=== PATIENT | female | born 1975 | race Two or more races ===

== ENCOUNTER 2017-04-18 10:13 | Emergency (ER) | payer OTHER ==
[~2017-04-18] VITALS: Ht 175.3 cm; Wt 85.0 kg
[~2017-04-18 10:13] MED LIST: IBUP800T23 PO; PERC5TAB12 PO
[2017-04-18 10:40] VITALS: BP 164/94; PULSE 72; RESP 17; TEMP 98.7; O2SAT 99
--- NOTE | 2017-04-18 10:40 | PD ---
HPI Chief Complaint: overdose Time Seen by Provider: 10:37 Travel History International Travel<30 days: No Contact w/Intl Traveler<30days: No History of Present Illness HPI Social 41 year-old woman presents emergency Department under a Castillo act. Castillo act states that she took a handful of Xanax tablets while arguing with her . Patient states that she was fighting and "wanted to stop". She took a handful of Xanax tablets wall in view of her . She states that she then spit them out. She did not swallow any. Police were called. She has a history of panic disorder, is prescribed the Xanax. Does not take any other medications. Is seeing a psychiatrist for depression symptoms but does not take any medicine for depression. She's never been hospitalized before. No history of previous attempts at self-harm. She states she's been feeling down for a while. She does states she feels safe at home. She does have firearms in the house. History Past Medical History Narrative Medical Anxiety/panic disorder Social History Alcohol Use: No Tobacco Use: No Allergies-Medications (Allergen,Severity, Reaction): Coded Allergies: codeine (Unverified Allergy, Intermediate, 11/16/16) iodine (Unverified Allergy, Intermediate, Hives, 11/16/16) morphine (Unverified Allergy, Intermediate, Hives, 11/16/16) potassium iodide (Unverified Allergy, Intermediate, Hives, 11/16/16) povidone-iodine (Unverified Allergy, Intermediate, Hives, 11/16/16) sodium iodide (Unverified Allergy, Intermediate, Hives, 11/16/16) sodium iodide (Unverified Allergy, Intermediate, Hives, 11/16/16) Reported Meds & Prescriptions Reported Meds & Active Scripts Active Reported Ibuprofen 800 Mg Tab 800 Mg PO Q8 PRN Percocet 5/325 (Oxycodone/Acetaminophen) 5 Mg/325 Mg Tab 1 Tab PO Q6H PRN Review of Systems Except as stated in HPI: all other systems reviewed are Neg Physical Exam Narrative GENERAL: Well-appearing 41 year-old woman, no acute distress. SKIN: Focused skin assessment warm/dry. HEAD: Atraumatic. Normocephalic. EYES: Pupils equal and round. No scleral icterus. No injection or drainage. ENT: No nasal bleeding or discharge. Mucous membranes pink and moist. NECK: Trachea midline. No JVD. CARDIOVASCULAR: Regular rate and rhythm. No murmur appreciated. RESPIRATORY: No accessory muscle use. Clear to auscultation. Breath sounds equal bilaterally. GASTROINTESTINAL: Abdomen soft, non-tender, nondistended. Hepatic and splenic margins not palpable. MUSCULOSKELETAL: No obvious deformities. No edema. NEUROLOGICAL: Awake and alert. No obvious cranial nerve deficits. Motor grossly within normal limits. Normal speech. PSYCHIATRIC: Tearful and sad. Data Data Last Documented VS Vital Signs Date Time Temp Pulse Resp B/P (MAP) Pulse Ox O2 Delivery O2 Flow Rate FiO2 04/18/17 10:40 98.7 72 17 164/94 (117) 99 Orders Orders Electrocardiogram (04/18/17 10:37) Complete Blood Count With Diff (04/18/17 10:37) Comprehensive Metabolic Panel (04/18/17 10:37) Urinalysis - C+S If Indicated (04/18/17 10:37) Iv Access Insert/Monitor (04/18/17 10:37) Sodium Chloride 0.9% Flush (Ns Flush) (04/18/17 10:45) Drug Screen, Random Urine (04/18/17 10:37) Alcohol (Ethanol) (04/18/17 10:37) Salicylates (Aspirin) (04/18/17 10:37) Tylenol (Acetaminophen) (04/18/17 10:37) Ed Urine Pregnancytest Poc (04/18/17 10:37) Psych Screen (04/18/17 10:37) Labs Laboratory Tests Test 04/18/17 10:50 04/18/17 10:55 Urine Color YELLOW Urine Turbidity CLEAR Urine pH 7.0 Urine Specific [place] 1.015 Urine Protein TRACE mg/dL Urine Glucose (UA) NEG mg/dL Urine Ketones NEG mg/dL Urine Occult Blood NEG Urine Nitrite NEG Urine Bilirubin NEG Urine Urobilinogen LESS THAN 2.0 MG/DL Urine Leukocyte Esterase NEG Urine RBC 1 /hpf Urine WBC LESS THAN 1 /hpf Urine Squamous Epithelial Cells <1 /hpf Urine Bacteria RARE /hpf Urine Hyaline Casts 3 /lpf Urine Mucus FEW /lpf Microscopic Urinalysis Comment CULT NOT INDICATED Urine Opiates Screen NEG Urine Barbiturates Screen NEG Urine Amphetamines Screen NEG Urine Benzodiazepines Screen NEG Urine Cocaine Screen NEG Urine Cannabinoids Screen POS White Blood Count 6.1 TH/MM3 Red Blood Count 4.28 MIL/MM3 Hemoglobin 13.6 GM/DL Hematocrit 40.0 % Mean Corpuscular Volume 93.5 FL Mean Corpuscular Hemoglobin 31.7 PG Mean Corpuscular Hemoglobin Concent 33.9 % Red Cell Distribution Width 13.7 % Platelet Count 188 TH/MM3 Mean Platelet Volume 7.8 FL Neutrophils (%) (Auto) 70.0 % Lymphocytes (%) (Auto) 24.1 % Monocytes (%) (Auto) 5.2 % Eosinophils (%) (Auto) 0.3 % Basophils (%) (Auto) 0.4 % Neutrophils # (Auto) 4.3 TH/MM3 Lymphocytes # (Auto) 1.5 TH/MM3 Monocytes # (Auto) 0.3 TH/MM3 Eosinophils # (Auto) 0.0 TH/MM3 Basophils # (Auto) 0.0 TH/MM3 CBC Comment DIFF FINAL Differential Comment Blood Urea Nitrogen 8 MG/DL Creatinine 0.72 MG/DL Random Glucose 95 MG/DL Total Protein 8.0 GM/DL Albumin 4.2 GM/DL Calcium Level 9.1 MG/DL Alkaline Phosphatase 55 U/L Aspartate Amino Transf (AST/SGOT) 20 U/L Alanine Aminotransferase (ALT/SGPT) 22 U/L Total Bilirubin 1.0 MG/DL Sodium Level 138 MEQ/L Potassium Level 4.2 MEQ/L Chloride Level 106 MEQ/L Carbon Dioxide Level 25.8 MEQ/L Anion Gap 6 MEQ/L Estimat Glomerular Filtration Rate 89 ML/MIN Salicylates Level LESS THAN 1.7 MG/DL Acetaminophen Level LESS THAN 2.0 MCG/ML Ethyl Alcohol Level LESS THAN 3 MG/DL [facility] Medical Decision Making Medical Screen Exam Complete: Yes Emergency Medical Condition: Yes Interpretation(s) My review of EKG: Sinus bradycardia rate of 59, normal axis, normal intervals, no acute ischemia. LABS: CBC is unremarkable. CMP is unremarkable. UA is unremarkable. Injection positive for cannabinoids Acetaminophen negative, as was lites negative Alcohol negative Differential Diagnosis Overdose, benzodiazepine ingestion, other coingestions, depression symptoms, just a reaction, other Narrative Course Medical decision-making new 41 year-old woman presents emergency Department under Castillo act with some depression symptoms and suicidal gesture. Looks well. No recent illness or injury. We'll check labs EKG, psych screen. No evidence of benzodiazepines effect. Labs unremarkable. Patient is medically clear for psychiatric evaluation. Saeid Angela MD Apr 18, 2017 10:40
[2017-04-18] MEDS ORDERED: SODIUM CHLORIDE 0.9% FLUSH 10 ML FLUSH IVF PRN (10:45)
[2017-04-18 11:16] LABS: AUTOMATED NEUTROPHIL # 4.3 TH/MM3 (1.8-7.7); BASOPHIL % 0.4 % (0.0-2.0); EOSINOPHIL % 0.3 % (0.0-4.0); HEMOGLOBIN 13.6 GM/DL (11.6-15.3); LYMPH % 24.1 % (9.0-44.0); LYMPHOCYTE # 1.5 TH/MM3 (1.0-4.8); MEAN CELL VOLUME 93.5 FL (80.0-100.0); MEAN CORPUSCULAR HEMOGLOBIN 31.7 PG (27.0-34.0); MEAN CORPUSCULAR HGB CONC 33.9 % (32.0-36.0); MEAN PLATELET VOLUME 7.8 FL (7.0-11.0); MONO % 5.2 % (0.0-8.0); MONOCYTE # 0.3 TH/MM3 (0-0.9); PLATELET COUNT 188 TH/MM3 (150-450); RED BLOOD COUNT 4.28 MIL/MM3 (4.00-5.30); RED CELL DISTRIBUTION WIDTH 13.7 % (11.6-17.2); WHITE BLOOD COUNT 6.1 TH/MM3 (4.0-11.0)
[2017-04-18 11:25] LABS: BACTERIA, URINE RARE /hpf; BILIRUBIN, URINE NEG (NEG); BLOOD, URINE NEG (NEG); GLUCOSE,URINE NEG (NEG); HYALINE CAST, URINE 3 /lpf (RARE); KETONE, URINE NEG (NEG); MUCUS URINE FEW /lpf (OCC); NITRITE,URINE NEG (NEG); SQUAMOUS EPITHELIAL CELL URINE <1 /hpf (0-5); URINE COLOR YELLOW (YELLW/STRAW); URINE LEUKOCYTE ESTERASE NEG (NEG)
[2017-04-18 11:36] LABS: ALBUMIN 4.2 GM/DL (3.4-5.0); ALT (GPT) 22 U/L (10-53); AST (GOT) 20 U/L (15-37); BICARBONATE 25.8 MEQ/L (21.0-32.0); BLOOD UREA NITROGEN 8 MG/DL (7-18); CALCIUM 9.1 MG/DL (8.5-10.1); CHLORIDE 106 MEQ/L (98-107); CREATININE 0.72 MG/DL (0.50-1.00); GLOMERULAR FILTRATION RATE 89 ML/MIN (>89); GLUCOSE,RANDOM 95 MG/DL (74-106); SODIUM (NA) 138 MEQ/L (136-145)
[2017-04-18 11:38] LABS: ALKALINE PHOSPHATASE 55 U/L (45-117)
[2017-04-18 11:55] LABS: ACETAMINOPHEN LESS THAN 2.0 MCG/ML (10.0-30.0)
[2017-04-18 13:07] VITALS: BP 168/82; PULSE 70; RESP 16; TEMP 98.3; O2SAT 97
--- NOTE | 2017-04-18 16:40 | PD ---
History of Present Illness Chief Complaint: Psychiatric Symptoms Time Seen by Provider: 15:45 Travel History International Travel<30 Days: No Contact w/Intl Traveler<30days: No Known affected area: No Legal Status Legal Status: Castillo Act Castillo Act Signed By: Braulio Ball History of Present Illness: History of Present Illness 41 year-old female with history of depression and anxiety, never formally treated who presents to emergency Department under a Castillo act initiated by law enforcement . Castillo act states that she took a handful of Xanax tablets while arguing with her . Patient states that she was fighting and "wanted it to stop". She took a handful of Xanax tablets while in view of her . She states that she then spit them out.She also tells me that she knew that if she spit them out she would not harm herself . The couple had been arguing for several hours and she states that " he said something that triggered me". EMR reviewed. No previous contact with [facility] psychiatry dept. Current toxicology is positive for cannabinoids. Negative for benzodiazepine. Patient is seen. She is alert, oriented, calm and cooperative. Speech is clear and logical. She is tearful. There is no psychosis, no marietta. Mood is depressed. No suicdal or homicidal ideation, intent or plan. She is future oriented. Has an appointment tomorrow with her therapist as well as with her PCP. She is considering treatment with antidepressants. Telephone call to her . at [phone]. He has no concerns if she were discharged and is ready to come and pick her up. [facility] Past Medical History ?: Not LMP: d Psychiatric History Psychiatric History Hx Psychiatric Treatment: No psychiatric hospitalizations. No previous suicide attempts. Has been receiving outpatient therapy services including EMDR. Has been receiving Xanax by PCP. History of Inpatient Treatment: No Guns or firearms in home: Yes Social History Born and raised in [place]. In [place] x 10 years. Completed 12 grade. Works as a gymnastic instructor. x 21 years. has 5 children. Lives with , 18 year old son, 13 year old and 3 year old. One of her children 2 years ago in an accident. Hx Alcohol Use: No Hx Tobacco Use: No Hx Substance Use: Yes Substance Use Type: Marijuana Hx of Substance Use Treatment: No Family Psychiatric History Negative. Allergies-Medications (Allergen,Severity, Reaction): Coded Allergies: codeine (Unverified Allergy, Intermediate, 11/16/16) iodine (Unverified Allergy, Intermediate, Hives, 11/16/16) morphine (Unverified Allergy, Intermediate, Hives, 11/16/16) potassium iodide (Unverified Allergy, Intermediate, Hives, 11/16/16) povidone-iodine (Unverified Allergy, Intermediate, Hives, 11/16/16) sodium iodide (Unverified Allergy, Intermediate, Hives, 11/16/16) sodium iodide (Unverified Allergy, Intermediate, Hives, 11/16/16) Reported Meds & Prescriptions Reported Meds & Active Scripts Active Reported Ibuprofen 800 Mg Tab 800 Mg PO Q8 PRN Percocet 5/325 (Oxycodone/Acetaminophen) 5 Mg/325 Mg Tab 1 Tab PO Q6H PRN Review of Systems Except as stated in HPI: all other systems reviewed are Neg Mental Status Examination Appearance: Appropriate Consciousness: Alert Orientation: x4 Motor Activity: Normal gait Speech: Unremarkable Language: Adequate Fund of Knowledge: Adequate Attention and Concentration: Adequate Memory: Unremarkable Mood: Sad, Anxious Affect: Appropriate, Other (tearful) Thought Process & Associations: Intact, Logical, Goal directed Thought Content: Appropriate Hallucination Type: None Delusion Type: None Suicidal Ideation: No Suicidal Plan: No Suicidal Intention: No Homicidal Ideation: No Homicidal Plan: No Homicidal Intention: No Insight: Adequate Judgment: Adequate [facility] Medical Decision Making Medical Record Reviewed: Yes Assessment/Plan 41 year-old female with history of depression and anxiety, never formally treated who presents to emergency Department under a Castillo act initiated by law enforcement . Castillo act states that she took a handful of Xanax tablets while arguing with her . Patient states that she was fighting and "wanted it to stop". She took a handful of Xanax tablets while in view of her . She states that she then spit them out.She also tells me that she knew that if she spit them out she would not harm herself . The couple had been arguing for several hours and she states that " he said something that triggered me". Patient is monitored in secure environment and presented no behavioral concerns. She is not psychotic and not manic. She is denying any suicidal or homicidal ideation, intent or plan. She is future oriented and is planning on seeing her therapist tomorrow. She also has an appointment with her PCP tomorrow as well. Patient does not meet criteria to remain under a Castillo act. She is requesting to be discharged. She has spoken with her who is wanting her to be discharged. She contracts for safety. Psychoeducation and support provided. Alex DURHAM. Psychiatrically clear for discharge from ED. Orders Orders Electrocardiogram (04/18/17 10:37) Complete Blood Count With Diff (04/18/17 10:37) Comprehensive Metabolic Panel (04/18/17 10:37) Urinalysis - C+S If Indicated (04/18/17 10:37) Iv Access Insert/Monitor (04/18/17 10:37) Sodium Chloride 0.9% Flush (Ns Flush) (04/18/17 10:45) Drug Screen, Random Urine (04/18/17 10:37) Alcohol (Ethanol) (04/18/17 10:37) Salicylates (Aspirin) (04/18/17 10:37) Tylenol (Acetaminophen) (04/18/17 10:37) Ed Urine Pregnancytest Poc (04/18/17 10:37) Psych Screen (04/18/17 10:37) Results Vital Signs Date Time Temp Pulse Resp B/P (MAP) Pulse Ox O2 Delivery O2 Flow Rate FiO2 04/18/17 13:07 98.3 70 16 168/82 (110) 97 04/18/17 10:40 98.7 72 17 164/94 (117) 99 Laboratory Tests Test 04/18/17 10:50 04/18/17 10:55 Urine Color YELLOW Urine Turbidity CLEAR Urine pH 7.0 Urine Specific [place] 1.015 Urine Protein TRACE Urine Glucose (UA) NEG Urine Ketones NEG Urine Occult Blood NEG Urine Nitrite NEG Urine Bilirubin NEG Urine Urobilinogen LESS THAN 2.0 Urine Leukocyte Esterase NEG Urine RBC 1 Urine WBC LESS THAN 1 Urine Squamous Epithelial Cells <1 Urine Bacteria RARE Urine Hyaline Casts 3 Urine Mucus FEW Microscopic Urinalysis Comment CULT NOT INDICATED Urine Opiates Screen NEG Urine Barbiturates Screen NEG Urine Amphetamines Screen NEG Urine Benzodiazepines Screen NEG Urine Cocaine Screen NEG Urine Cannabinoids Screen POS White Blood Count 6.1 Red Blood Count 4.28 Hemoglobin 13.6 Hematocrit 40.0 Mean Corpuscular Volume 93.5 Mean Corpuscular Hemoglobin 31.7 Mean Corpuscular Hemoglobin Concent 33.9 Red Cell Distribution Width 13.7 Platelet Count 188 Mean Platelet Volume 7.8 Neutrophils (%) (Auto) 70.0 Lymphocytes (%) (Auto) 24.1 Monocytes (%) (Auto) 5.2 Eosinophils (%) (Auto) 0.3 Basophils (%) (Auto) 0.4 Neutrophils # (Auto) 4.3 Lymphocytes # (Auto) 1.5 Monocytes # (Auto) 0.3 Eosinophils # (Auto) 0.0 Basophils # (Auto) 0.0 CBC Comment DIFF FINAL Differential Comment Blood Urea Nitrogen 8 Creatinine 0.72 Random Glucose 95 Total Protein 8.0 Albumin 4.2 Calcium Level 9.1 Alkaline Phosphatase 55 Aspartate Amino Transf (AST/SGOT) 20 Alanine Aminotransferase (ALT/SGPT) 22 Total Bilirubin 1.0 Sodium Level 138 Potassium Level 4.2 Chloride Level 106 Carbon Dioxide Level 25.8 Anion Gap 6 Estimat Glomerular Filtration Rate 89 Salicylates Level LESS THAN 1.7 Acetaminophen Level LESS THAN 2.0 Ethyl Alcohol Level LESS THAN 3 Diagnosis Primary Impression: Anxiety Additional Impression: Adjustment disorder Psychiatrically Cleared: Yes Med/ Other Pt Specific Info: No Change to Meds Disposition: 01 DISCHARGE HOME Condition: Stable Problem Qualifiers Additional Impression: Adjustment disorder Qualified Codes: F43.23 - Adjustment disorder with mixed anxiety and depressed mood Tresa Pollack Apr 18, 2017 16:40
[2017-04-18 17:00] VITALS: BP 148/84; PULSE 69; RESP 18
--- NOTE | 2017-04-18 17:12 | PD ---
Physical Exam Narrative In short this as a 41-year-old female who was not brought in under Castillo act after she took a handful of Xanax during an argument with her . She was witnessed spitting the pills out after she put them in her mouth. She observed and medically cleared in the emergency department. She had no signs of benzodiazepine overdose. She was evaluated by the counselling psychologistTresa, who lifted the Castillo act and the patient will be discharged home. Data Data Last Documented VS Vital Signs Date Time Temp Pulse Resp B/P (MAP) Pulse Ox O2 Delivery O2 Flow Rate FiO2 04/18/17 13:07 98.3 70 16 168/82 (110) 97 Orders Orders Electrocardiogram (04/18/17 10:37) Complete Blood Count With Diff (04/18/17 10:37) Comprehensive Metabolic Panel (04/18/17 10:37) Urinalysis - C+S If Indicated (04/18/17 10:37) Iv Access Insert/Monitor (04/18/17 10:37) Sodium Chloride 0.9% Flush (Ns Flush) (04/18/17 10:45) Drug Screen, Random Urine (04/18/17 10:37) Alcohol (Ethanol) (04/18/17 10:37) Salicylates (Aspirin) (04/18/17 10:37) Tylenol (Acetaminophen) (04/18/17 10:37) Ed Urine Pregnancytest Poc (04/18/17 10:37) Psych Screen (04/18/17 10:37) Diet Regular Basic (04/18/17 Dinner) Labs Laboratory Tests Test 04/18/17 10:50 04/18/17 10:55 Urine Color YELLOW Urine Turbidity CLEAR Urine pH 7.0 Urine Specific [place] 1.015 Urine Protein TRACE mg/dL Urine Glucose (UA) NEG mg/dL Urine Ketones NEG mg/dL Urine Occult Blood NEG Urine Nitrite NEG Urine Bilirubin NEG Urine Urobilinogen LESS THAN 2.0 MG/DL Urine Leukocyte Esterase NEG Urine RBC 1 /hpf Urine WBC LESS THAN 1 /hpf Urine Squamous Epithelial Cells <1 /hpf Urine Bacteria RARE /hpf Urine Hyaline Casts 3 /lpf Urine Mucus FEW /lpf Microscopic Urinalysis Comment CULT NOT INDICATED Urine Opiates Screen NEG Urine Barbiturates Screen NEG Urine Amphetamines Screen NEG Urine Benzodiazepines Screen NEG Urine Cocaine Screen NEG Urine Cannabinoids Screen POS White Blood Count 6.1 TH/MM3 Red Blood Count 4.28 MIL/MM3 Hemoglobin 13.6 GM/DL Hematocrit 40.0 % Mean Corpuscular Volume 93.5 FL Mean Corpuscular Hemoglobin 31.7 PG Mean Corpuscular Hemoglobin Concent 33.9 % Red Cell Distribution Width 13.7 % Platelet Count 188 TH/MM3 Mean Platelet Volume 7.8 FL Neutrophils (%) (Auto) 70.0 % Lymphocytes (%) (Auto) 24.1 % Monocytes (%) (Auto) 5.2 % Eosinophils (%) (Auto) 0.3 % Basophils (%) (Auto) 0.4 % Neutrophils # (Auto) 4.3 TH/MM3 Lymphocytes # (Auto) 1.5 TH/MM3 Monocytes # (Auto) 0.3 TH/MM3 Eosinophils # (Auto) 0.0 TH/MM3 Basophils # (Auto) 0.0 TH/MM3 CBC Comment DIFF FINAL Differential Comment Blood Urea Nitrogen 8 MG/DL Creatinine 0.72 MG/DL Random Glucose 95 MG/DL Total Protein 8.0 GM/DL Albumin 4.2 GM/DL Calcium Level 9.1 MG/DL Alkaline Phosphatase 55 U/L Aspartate Amino Transf (AST/SGOT) 20 U/L Alanine Aminotransferase (ALT/SGPT) 22 U/L Total Bilirubin 1.0 MG/DL Sodium Level 138 MEQ/L Potassium Level 4.2 MEQ/L Chloride Level 106 MEQ/L Carbon Dioxide Level 25.8 MEQ/L Anion Gap 6 MEQ/L Estimat Glomerular Filtration Rate 89 ML/MIN Salicylates Level LESS THAN 1.7 MG/DL Acetaminophen Level LESS THAN 2.0 MCG/ML Ethyl Alcohol Level LESS THAN 3 MG/DL [facility] Medical Record Reviewed: Yes Supervised Visit with ZEYAD: Yes Narrative Course [facility] has evaluated the patient, lifted the Castillo act and the patient will be discharged home. Patient contracts safety. Denies suicidal or homicidal ideations. Patient will be provided community resource packet to [facility] for follow-up. Has friends and family for support. Patient is medically cleared for discharge. Diagnosis Primary Impression: Encounter for medical screening examination Referrals: [facility] (Out patient) [facility] Psychiatrist Additional Instruction: Follow-up with psychiatry Follow-up with primary care provider Follow-up with Gary Hendrix Return to the emergency department immediately with worsening of symptoms Disposition: 01 DISCHARGE HOME Condition: Stable Maria G Zheng Apr 18, 2017 17:12
--- NOTE | 2017-04-19 11:10 | EKG ---
Date Performed: 04/18/2017 Time Performed: 11:09:49 PTAGE: 41 years EKG: SINUS BRADYCARDIA WITH SINUS ARRHYTHMIA BORDERLINE ECG NO PREVIOUS TRACING DOCTOR: Saeid Cabrera Interpretating Date/Time 04/19/2017 11:10:13
== END 2017-04-18 18:35 | disposition home or self-care (01) ==
LOC: NEPD 10:13 → NEPJ 18:35
DX: F43.23 Adjustment disorder with mixed anxiety and depressed mood (principal); R00.1 Bradycardia, unspecified; F41.0 Panic disorder [episodic paroxysmal anxiety]; Z79.899 Other long term (current) drug therapy
CPT/HCPCS: 80053; 80307; 81001; 84703; 85025; 93005; 99284